=== PATIENT | female | born 1960 | race Caucasian/White ===

== ENCOUNTER 2021-03-25 07:21 | Outpatient (REF) | payer BC, SELFPAY ==
--- NOTE | ~2021-03-25 | MM_ITS ---
EXAMINATION: MM SCREENING DIGITAL BREAST TOMOSYNTHESIS, BILATERAL CLINICAL INFORMATION: Screening. Asymptomatic. The lifetime risk of breast cancer based on the Tyrer-Cuzick Model is 7%. COMPARISON: Mammography: 03/03/2020, 09/11/2018, 08/15/2017 TECHNIQUE: Digital breast tomosynthesis is performed in both the craniocaudal and mediolateral oblique views along with computer-aided detection (CAD). Synthesized 2D images are generated from the tomosynthesis. FINDINGS: There are scattered areas of fibroglandular density (ACR BI-RADS breast composition Category b). There are no significant masses, abnormal calcifications, or other abnormalities. Again, there is stable nodularity anterior central 12:00 right breast and retroareolar 6:00 right breast. Neither breast shows interval developing density or architectural abnormality. There are scattered bilateral benign round and some ductal secretory calcifications. No significant changes. MM/MM tomosynthesis screening BI IMPRESSION: No mammographic evidence of malignancy. ASSESSMENT: BI-RADS 2: Benign RECOMMENDATION: Routine annual mammography screening. This patient's information was entered into a reminder system with a target due date for their next mammogram.
== END 2021-03-25 07:22 | disposition home or self-care (01) ==
LOC: HO.MAMMO 07:21
PROVIDERS: PCP Internal Medicine; Visit Provider Internal Medicine
DX: Z12.31 Encounter for screening mammogram for malignant neoplasm of breast (principal)
CPT/HCPCS: 77063; 77067

== ENCOUNTER 2021-08-03 07:01 | Outpatient (REF) | payer BC, SELFPAY ==
[2021-08-03 07:18] LABS: MANUAL DIFF FLAG NO
[2021-08-03 07:37] LABS: Basophils Percent Auto 0.6 % (0-2); Eosinophils Absolute Auto 0.3 X10*3/uL (0.0-0.4); Eosinophils Percent Auto 4.5 % (0-4); Hematocrit 43.3 % (37.0-47.0); Hemoglobin 14.1 g/dl (12.0-16.0); Imm Gran Abs Auto 0.03 X10*3/uL (0.00-0.03); Imm Gran Pct Auto 0.4 % (0.0-0.4); Lymphocytes Absolute Auto 1.8 X10*3/uL (1.2-4.9); Lymphocytes Percent Auto 25.5 % (20-40); Mean Corpuscular HGB Conc 32.6 g/dl (31.0-35.0); Mean Corpuscular Hemoglobin 30.7 pg (27.0-33.0); Mean Corpuscular Volume 94.1 fL (80.0-98.0); Mean Platelet Volume 8.7 fL (9.4-12.3); Monocytes Absolute Auto 0.4 X10*3/uL (0.1-1.2); Monocytes Percent Auto 5.1 % (2-11); Neutrophils Absolute Auto 4.6 x10*3/uL (2.0-8.3); Neutrophils Percent Auto 63.9 % (45-73); Platelet Count 243 X10*3/uL (160-400); Red Cell Distribution Width 12.4 % (11.0-16.0); White Blood Count 7.2 X10*3/uL (4.8-10.8)
[2021-08-03 08:02] LABS: Alanine Aminotransferase 49 U/L (0-31); Albumin Level 4.2 g/dL (3.5-5.0); Alkaline Phosphatase 67 U/L (39-117); Anion Gap 13 (12-20); Aspartate Amino Transferase 39 U/L (5-31); Bilirubin Total 0.9 mg/dL (0.0-1.0); Blood Urea Nitrogen 16 mg/dL (9-16); Calcium 9.4 mg/dL (8.4-10.2); Carbon Dioxide 28 mmol/L (22-29); Chloride 104 mmol/L (96-108); Cholesterol 207 mg/dL; Estimated Glomerular Filt Rate > 60; Glucose Fasting 108 mg/dL (60-99); HDL Cholesterol 59 mg/dL; LDL Cholesterol Calculated 124 mg/dl; Sodium 141 mmol/L (135-145); Total Protein 7.1 g/dL (6.5-8.0); Triglycerides 123 mg/dL
[2021-08-03 08:24] LABS: Free T4 (Free Thyroxine) 0.88 ng/dL (0.71-1.85); Vitamin D 25-OH Total 34.4 ng/mL (>30)
== END 2021-08-03 07:02 | disposition home or self-care (01) ==
LOC: HO.LAB 07:01
PROVIDERS: PCP Internal Medicine; Visit Provider Internal Medicine
DX: Z00.00 Encounter for general adult medical examination without abnormal findings (principal); E03.9 Hypothyroidism, unspecified
CPT/HCPCS: 36415; 80053; 80061; 82306; 84439; 84443; 85025

== ENCOUNTER 2022-04-05 07:34 | Outpatient (REF) | payer BC, SELFPAY ==
--- NOTE | ~2022-04-05 | MM_ITS ---
EXAMINATION: MM SCREENING DIGITAL BREAST TOMOSYNTHESIS, BILATERAL CLINICAL INFORMATION: Screening. Asymptomatic. Remote history bilateral excisional biopsies. The lifetime risk of breast cancer based on the Tyrer-Cuzick Model is 5%. COMPARISON: Mammography: 03/25/2021, 03/03/2020, 09/11/2018 TECHNIQUE: Digital breast tomosynthesis is performed in both the craniocaudal and mediolateral oblique views along with computer-aided detection (CAD). Synthesized 2D images are generated from the tomosynthesis. FINDINGS: There are scattered areas of fibroglandular density (ACR BI-RADS breast composition Category b). Parenchymal pattern is similar to prior studies. There is no developing density or interval architectural abnormality or abnormal calcifications. Again, there is stable smooth nodularity right breast. Scattered bilateral round calcification are again seen. The axilla and skin contours are unremarkable. No significant changes. MM/MM tomosynthesis screening BI IMPRESSION: No mammographic evidence of malignancy. ASSESSMENT: BI-RADS 2: Benign RECOMMENDATION: Routine annual mammography screening. This patient's information was entered into a reminder system with a target due date for their next mammogram.
== END 2022-04-05 07:35 | disposition home or self-care (01) ==
LOC: HO.MAMMO 07:34
PROVIDERS: PCP Internal Medicine; Visit Provider Internal Medicine
DX: Z12.31 Encounter for screening mammogram for malignant neoplasm of breast (principal)
CPT/HCPCS: 77063; 77067

== ENCOUNTER 2023-03-28 07:08 | Outpatient (REF) | payer BC, SELFPAY ==
[2023-03-28 07:29] LABS: MANUAL DIFF FLAG NO
[2023-03-28 07:40] LABS: Basophils Absolute Auto 0.1 X10*3/uL (0.0-0.2); Basophils Percent Auto 0.5 % (0-2); Eosinophils Absolute Auto 0.2 X10*3/uL (0.0-0.4); Eosinophils Percent Auto 1.6 % (0-4); Hemoglobin 14.3 g/dl (12.0-16.0); Imm Gran Abs Auto 0.04 X10*3/uL (0.00-0.03); Imm Gran Pct Auto 0.4 % (0.0-0.4); Lymphocytes Absolute Auto 1.8 X10*3/uL (1.2-4.9); Mean Corpuscular HGB Conc 33.3 g/dl (31.0-35.0); Mean Corpuscular Volume 93.1 fL (80.0-98.0); Mean Platelet Volume 8.8 fL (9.4-12.3); Monocytes Absolute Auto 0.5 X10*3/uL (0.1-1.2); Monocytes Percent Auto 4.8 % (2-11); Neutrophils Percent Auto 73.7 % (45-73); Platelet Count 249 X10*3/uL (160-400); Red Blood Count 4.62 X10*6/uL (4.20-5.50); Red Cell Distribution Width 12.9 % (11.0-16.0); White Blood Count 9.6 X10*3/uL (4.8-10.8)
[2023-03-28 08:33] LABS: Alanine Aminotransferase 32 U/L (0-31); Albumin Level 4.3 g/dL (3.5-5.0); Alkaline Phosphatase 67 U/L (39-117); Anion Gap 15 (12-20); Aspartate Amino Transferase 22 U/L (5-31); Bilirubin Total 0.4 mg/dL (0.0-1.0); Blood Urea Nitrogen 17 mg/dL (9-16); Carbon Dioxide 24 mmol/L (22-29); Chloride 106 mmol/L (96-108); Cholesterol 199 mg/dL (<200); Estimated Glomerular Filt Rate > 60; Glucose Fasting 113 mg/dL (60-99); HDL Cholesterol 64 mg/dL (>40); LDL Cholesterol Calculated 117 mg/dL (<100); Potassium 4.3 mmol/L (3.3-5.1); Sodium 141 mmol/L (135-145); Total Protein 7.5 g/dL (6.5-8.0); Triglycerides 93 mg/dL (<150)
[2023-03-28 08:42] LABS: Free T4 (Free Thyroxine) 0.87 ng/dL (0.71-1.85); Thyroid Stimulating Hormone 1.83 uIU/mL (0.32-4.0)
[2023-03-28 09:16] LABS: Vitamin B12 393 pg/mL (200-900)
== END 2023-03-28 07:09 | disposition home or self-care (01) ==
LOC: HO.LAB 07:08
PROVIDERS: PCP Internal Medicine; Visit Provider Internal Medicine
DX: E78.00 Pure hypercholesterolemia, unspecified (principal); R53.83 Other fatigue; E03.9 Hypothyroidism, unspecified; R79.89 Other specified abnormal findings of blood chemistry
CPT/HCPCS: 36415; 80053; 80061; 82607; 84439; 84443; 85025

== ENCOUNTER 2023-04-04 07:33 | Outpatient (REF) | payer BC, SELFPAY ==
--- NOTE | ~2023-04-04 | MM_ITS ---
EXAMINATION: MM SCREENING DIGITAL BREAST TOMOSYNTHESIS, BILATERAL CLINICAL INFORMATION: Screening. Asymptomatic. COMPARISON: Mammography: This study is compared with prior exams dating back to 2018. TECHNIQUE: Digital breast tomosynthesis is performed in both the craniocaudal and mediolateral oblique views along with computer-aided detection (CAD). Synthesized 2D images are generated from the tomosynthesis. FINDINGS: The breasts are almost entirely fatty (ACR BI-RADS breast composition Category a). There are no significant masses, abnormal calcifications, or other abnormalities. There are few, unchanged, bilateral benign calcifications in each breast. MM/MM tomosynthesis screening BI IMPRESSION: No mammographic evidence of malignancy. ASSESSMENT: BI-RADS BI-RADS 2 - Benign Findings RECOMMENDATION: Routine annual mammography screening. 1 year F/U This examination should not preclude the clinical evaluation of a suspicious palpable abnormality. This patient's information was entered into a reminder system with a target due date for their next mammogram.
== END 2023-04-04 07:34 | disposition home or self-care (01) ==
LOC: HO.MAMMO 07:33
PROVIDERS: PCP Internal Medicine; Visit Provider Internal Medicine
DX: Z12.31 Encounter for screening mammogram for malignant neoplasm of breast (principal)
CPT/HCPCS: 77063; 77067

== ENCOUNTER → 2023-04-04 07:45 | Outpatient (BNV) | payer BC, SELFPAY | PROVIDERS: PCP Internal Medicine; Visit Provider Radiology Diagnostic Radiology | DX: Z12.31 Encounter for screening mammogram for malignant neoplasm of breast (principal) | CPT/HCPCS: 77063; 77067 ==

== ENCOUNTER 2024-04-11 07:19 | Outpatient (REF) | payer MEDICARE, SELFPAY ==
--- NOTE | ~2024-04-11 | MM_ITS ---
EXAMINATION: MM SCREENING DIGITAL BREAST TOMOSYNTHESIS, BILATERAL CLINICAL INFORMATION: Screening. Asymptomatic. COMPARISON: Mammography: Comparison is made with available priors TECHNIQUE: Digital breast mammography with tomosynthesis is performed in both the craniocaudal and mediolateral oblique views along with computer-aided detection (CAD). FINDINGS: There are scattered areas of fibroglandular density (ACR BI-RADS breast composition Category b). There are no significant masses, abnormal calcifications, or other abnormalities. MM/MM tomosynthesis screening BI IMPRESSION: No mammographic evidence of malignancy. ASSESSMENT: BI-RADS BI-RADS 1 - Negative RECOMMENDATION: Routine annual mammography screening. 1 year F/U This examination should not preclude the clinical evaluation of a suspicious palpable abnormality. This patient's information was entered into a reminder system with a target due date for their next mammogram. Electronically signed by: Kayla Colin DO 04/19/2024 10:37 AM TESFAYE
== END 2024-04-11 07:20 | disposition home or self-care (01) ==
LOC: HO.MAMMO 07:19
PROVIDERS: PCP Internal Medicine; Visit Provider Internal Medicine
DX: Z12.31 Encounter for screening mammogram for malignant neoplasm of breast (principal)
CPT/HCPCS: 77063; 77067

== ENCOUNTER → 2024-04-11 07:30 | Outpatient (BNV) | payer MEDICARE, SELFPAY | PROVIDERS: PCP Internal Medicine; Visit Provider Internal Medicine | DX: Z12.31 Encounter for screening mammogram for malignant neoplasm of breast (principal) | CPT/HCPCS: 77063; 77067 ==

== ENCOUNTER 2024-05-24 06:22 | Outpatient (REF) | payer MEDICARE, SELFPAY ==
[2024-05-24 06:38] LABS: MANUAL DIFF FLAG NO
[2024-05-24 07:15] LABS: Basophils Percent Auto 0.6 % (0-2); Eosinophils Absolute Auto 0.2 X10*3/uL (0.0-0.4); Eosinophils Percent Auto 3.2 % (0-4); Hematocrit 42.1 % (37.0-47.0); Hemoglobin 14.1 g/dl (12.0-16.0); Imm Gran Abs Auto 0.03 X10*3/uL (0.00-0.03); Imm Gran Pct Auto 0.5 % (0.0-0.4); Lymphocytes Absolute Auto 1.9 X10*3/uL (1.2-4.9); Lymphocytes Percent Auto 28.7 % (20-40); Mean Corpuscular HGB Conc 33.5 g/dl (31.0-35.0); Mean Corpuscular Hemoglobin 31.5 pg (27.0-33.0); Mean Platelet Volume 8.8 fL (9.4-12.3); Monocytes Absolute Auto 0.3 X10*3/uL (0.1-1.2); Monocytes Percent Auto 5.1 % (2-11); Neutrophils Absolute Auto 4.1 x10*3/uL (2.0-8.3); Neutrophils Percent Auto 61.9 % (45-73); Platelet Count 234 X10*3/uL (160-400); Red Blood Count 4.48 X10*6/uL (4.20-5.50); Red Cell Distribution Width 12.5 % (11.0-16.0); White Blood Count 6.7 X10*3/uL (4.8-10.8)
[2024-05-24 08:05] LABS: Alanine Aminotransferase 45 U/L (0-31); Alkaline Phosphatase 54 U/L (39-117); Anion Gap 12 (12-20); Aspartate Amino Transferase 31 U/L (5-31); Bilirubin Total 0.6 mg/dL (0.0-1.0); Blood Urea Nitrogen 14 mg/dL (9-16); Carbon Dioxide 27 mmol/L (22-29); Chloride 107 mmol/L (96-108); Cholesterol 195 mg/dL (<200); Estimated Glomerular Filt Rate > 60; Glucose Fasting 106 mg/dL (60-99); HDL Cholesterol 59 mg/dL (>40); LDL Cholesterol Calculated 108 mg/dL (<100); Potassium 3.7 mmol/L (3.3-5.1); Sodium 142 mmol/L (135-145); Total Protein 6.9 g/dL (6.5-8.0); Triglycerides 143 mg/dL (<150)
[2024-05-24 08:35] LABS: Free T4 (Free Thyroxine) 0.88 ng/dL (0.71-1.85); Vitamin D 25-OH Total 21.5 ng/mL (>30)
== END 2024-05-24 06:23 | disposition home or self-care (01) ==
LOC: HO.LAB 06:22
PROVIDERS: PCP Internal Medicine; Visit Provider Internal Medicine
DX: E78.00 Pure hypercholesterolemia, unspecified (principal); E03.9 Hypothyroidism, unspecified; I10 Essential (primary) hypertension
CPT/HCPCS: 36415; 80053; 80061; 82306; 84439; 84443; 85025

== ENCOUNTER 2025-04-17 07:24 | Outpatient (REF) | payer MEDICARE, SELFPAY ==
--- OUTSIDE RECORDS SUMMARY | 2025-04-17 07:26 | XMS_ITS | Patient Health Record ---
Author Organization [facility] Address [address] [place] [address] Care Team Providers Care Supervisor Of Way Name Role Phone Clovis (RETIRED) Mello SURESH Primary Care Provide Sushant Sanchez Jr Unavailable Allergies Allergen (clinical drug ingredient) Drug/Non Drug Allergy documented on EMR Reaction Allergy Type Onset Date Status Yeast Formula Unknown Drug Allergy Act alejandrina Sulfa Unknown Drug Allergy Active Penicillin Unknown Drug Allergy Active Reason For Referral No Information Medications Medication SIG (Take, Route, Frequency, Duration) Notes Start Date End Date Status Levothyroxine Sodium 25mg Active MoviPrep 100 GM as directed before colonoscopy Orally; Duration: 1 dose 09/09/2013 Active Problems Problem Type SNOMED Code ICD Code Onset Dates Problem Status W/U Status Risk Notes Problem Colon cancer screening (204475366) Colon cancer screening (V76.51) Active confirmed Plan Of Treatment Future Test Test Name Order Date COLONOSCOPY 09/09/2013 Insurance Providers Payer Name Payer Address Payer Phone Subscriber Number Group Number Insured Name Patient Relationship to Insured Coverage Start Date Coverage End Date [facility] [address] [place], [place] [id number] 01 DELIA SOLIS Self - patient is the insured Medical (General) History Medical History History ICD Code hypothyroidism Surgical History Surgery Date(Month/Year) tonsillectomy appendectomy section breast biopsy thyroidectomy 1996
== END 2025-04-17 07:25 | disposition home or self-care (01) ==
LOC: HO.MAMMO 07:24
PROVIDERS: PCP Student in an Organized Health Care Education/Training Program; Visit Provider Student in an Organized Health Care Education/Training Program
DX: Z12.31 Encounter for screening mammogram for malignant neoplasm of breast (principal)
CPT/HCPCS: 77063; 77067

== ENCOUNTER → 2025-04-17 07:30 | Outpatient (BNV) | payer MEDICARE, SELFPAY | PROVIDERS: PCP Student in an Organized Health Care Education/Training Program; Visit Provider Internal Medicine | DX: Z12.31 Encounter for screening mammogram for malignant neoplasm of breast (principal) | CPT/HCPCS: 77063; 77067 ==

== ENCOUNTER 2025-04-18 09:16 | Outpatient (AMB) | payer MEDICARE, SELFPAY ==
--- NOTE | 2025-04-18 07:06 | MHC.PC.OV ---
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: No Accompanied by: Self / Same As Patient Allergies penicillin V Allergy (Severe, Verified 04/18/25 09:27) yeast infection Sulfa (Sulfonamide Antibiotics) Allergy (Severe, Verified 04/18/25 09:27) swelling mouth and hands Tobacco use date assessed: 04/18/25 Fall risk assessment: No Falls in past year Last assessed Fall Risk: 04/18/25 Dental Screening Dental Screen Date: 04/18/25 Did you have a dental visit in the last 12 months?: Yes Did you have a dental problem in the last 6 months where you did not have access to dental care?: No Was dental information given to patient?: Patient has dentist HPI HPI Comments History of Present Illness Details The patient is a 65-year-old female with a past medical history of hypothyroidism and hypercholesterolemia presenting to [facility]. Her hypothyroidism is a result of a subtotal thyroidectomy performed 29 years ago for a benign condition, and she also has associated nerve damage from the surgery. The patient reports having pain in her hands for the past few years, which started in her fingers and now extends to her wrist. She has tried using braces, but found them cumbersome. She also experiences foot pain that is sometimes severe enough to prevent her from walking, at which point she performs sitting exercises. For pain management, she uses Aleve in the morning and Tylenol later in the day, limiting use to a maximum of three times a day. She also endorses constant, tolerable neck pain since her surgery. Review of labs from May 2024 showed a slightly elevated fasting glucose of 106, an unremarkable CBC, and an ALT that had increased to 45 from 32 the previous year. Her ALT has generally been in the high 40s for a few years. Her lipid panel showed a total cholesterol of 195 with an LDL of 108. Her vitamin D level was low at 21.5, and this deficiency was not treated at the time. The patient's mother at age 28 and had a history of a congenital ASD, rheumatic fever with mitral valve stenosis, and lupus. Her father was diagnosed with lung cancer and at the age of 18. The patient denies tobacco, heroin, marijuana, or cocaine use and reports occasional wine consumption. She states she is an anxious person, especially in clinical settings. Medical History: - Hypothyroidism, secondary to subtotal thyroidectomy 29 years ago. - Hypercholesterolemia. - Nerve damage, as a result of thyroidectomy. - Arthritis. - Vitamin D deficiency. - Allergies: Penicillins and sulfa drugs. Surgical History: - Subtotal thyroidectomy 29 years ago for a benign condition. Medications: - Tylenol 650 mg as needed for pain. - Levothyroxine 25 mcg daily for hypothyroidism. - Naproxen once daily for arthritis pain. - Simvastatin 20 mg daily for hypercholesterolemia. - Aleve as needed for pain. Family History: - Mother: at age 28, had a congenital atrial septal defect (ASD), rheumatic fever with mitral valve stenosis, and lupus. - Father: at age 18, had lung cancer. Diagnostic Results: - Labs from May 2024: - CBC: Unremarkable. - Fasting glucose: 106 mg/dL. - Aspartate aminotransferase (ALT): 45 U/L (increased from 32 U/L last year). - Total cholesterol: 195 mg/dL. - LDL cholesterol: 108 mg/dL. - Vitamin D: 21.5 ng/mL. - ASCVD score: 8.7%. Social History: - Substance Use: Denies tobacco, heroin, marijuana, and cocaine use. - Alcohol Use: Reports occasional wine consumption. - Exercise: Tries to walk as much as possible; performs sitting exercises on days when foot pain is severe. - Mental Health: Reports being a very anxious person, especially when visiting clinics. [facility] Medical History (Updated 04/18/25 @ 10:33 by Isiah Tijerina MD) Vitamin D deficiency Elevated liver enzymes Arthralgia Other hyperlipidemia Primary hypertension Hypothyroidism (acquired) Surgical History (Updated 04/17/25 @ 15:40 by Candy De La Garza) History of colonoscopy (~12/02/13) Social History Housing: House Patient Tobacco Use Status: Never used Tobacco e-Cigarette/Vaping Use: Never Used service: No Current occupational status: retired Questionnaire PHQ-9 Over the last 2 weeks, how often have you been bothered by any of the following problems? 1. Little interest or pleasure in doing things: not at all 2. Feeling down, depressed, or hopeless: not at all 3. Trouble falling or staying asleep, or sleeping too much: not at all 4. Feeling tired or having little energy: not at all 5. Poor appetite or overeating: not at all 6. Feeling bad about yourself - or that you are a failure or have let yourself or your family down: not at all 7. Trouble concentrating on things, such as reading the newspaper or watching television: not at all 8. Moving or speaking so slowly that other people could have noticed. Or the opposite - being so fidgety or restless that you have been moving around a lot more than usual: not at all 9. Thoughts that you would be better off or of hurting yourself in some way: not at all Total score: 0 Depression Screening Interpretation: Negative Depression Screening Done: Yes 40322 - PHQ-9 Billing: Yes Source: Developed by Drs. Isra Luna, Selene James, Jesus Robles and colleagues, with an educational maria from [employer]. Thrive Questionnaire Date Thrive assessed: 04/18/25 I am a: Patient What is your living situation today?: I have a steady place to live Within the past 12 months, did the food you bought not last and you didn't have the money to get more?: Never true Within the past 12 months, did you worry whether your food would run out before you got money to buy more?: Never true Do you have trouble paying for medicines?: No Do you have trouble getting transportation to medical appointments?: No Do you have trouble paying your heating and electricity bill?: No Do you have trouble taking care of your child, family member or friend?: No Do you have trouble with day-to-day activities such as bathing, preparing meals, shopping, managing finances, etc.?: No Are you currently unemployed and looking for a job?: No Are you interested in more education?: No THRIVE Score: 0 AUDIT C Alcohol Use Questionnaire (AUDIT-C) 1. How often do you have a drink containing alcohol?: Monthly or less 2. How many drinks containing alcohol do you have on a typical day when you are drinking?: 1 or 2 3. How often do you have six or more drinks on one occasion?: Never Total Score: 1 Score Reviewed/Action Taken: Yes RIGOBERTO-7 AMB Questionnaire RIGOBERTO-7 Date RIGOBERTO - 7 assessed: 04/18/25 Feeling nervous, anxious, or on edge: 0 = Not at all Not being able to stop or control worryin = Not at all Worrying too much about different things: 0 = Not at all Trouble relaxin = Not at all Being so restless that it is hard to sit still: 0 = Not at all Becoming easily annoyed or irritable: 0 = Not at all Feeling afraid as if something awful might happen: 0 = Not at all Total RIGOBERTO-7 score (0-4 normal; 5-9 mild; 10-14 moderate; 15-21 severe): 0 Source: Developed by Drs. Isra Luna, Selene James, Jesus Robles and colleagues, with an educational maria from [employer]. RIGOBERTO-7 Assessment Billing RIGOBERTO-7 Assessment Tool: RIGOBERTO-7 Assessment 40982 Review of Systems Narrative - Musculoskeletal: Reports pain in hands, wrists, and feet for the past few years. - Neurological: Reports occasional foot cramping and constant neck pain since her surgery. - Endocrine: Reports having wet hands. All systems reviewed & are unremarkable except as reviewed in HPI and above Physical exam (Primary Care) Vital Signs: Last Vital Signs Temp 97.5 F 04/18/25 09:29 Pulse 103 H 04/18/25 09:29 Resp 18 04/18/25 09:29 BP 156/84 H 04/18/25 09:29 Pulse Ox 96 04/18/25 09:29 Oxygen Delivery Method Room Air 04/18/25 09:29 BMI result Body Mass Index 39.1 Tobacco/Smoking Status: Tobacco use Status Tobacco use date assessed 04/18/25 04/18/25 07:07 Patient Tobacco Use Status Never used Tobacco 04/18/25 09:32 e-Cigarette/Vaping Use Never Used 04/18/25 09:32 Depression Screening Interpretation: Negative Narrative General: Alert and oriented, Well nourished, No acute distress. Eye: Pupils are equal, round and reactive to light, Intact accommodation, Extraocular movements are intact, Normal conjunctiva, Vision unchanged. HENT: Normocephalic, Atraumatic, Tympanic membranes are clear, Normal hearing, Oral mucosa is moist, No pharyngeal erythema, Ear canals patent. Respiratory: Lungs CTA bilaterally, No wheeze, Respirations are non-labored. Cardiovascular: Tachycardic to 103, Regular rhythm, S1 auscultated, S2 auscultated, No murmur, Good pulses equal in all extremities, Normal peripheral perfusion, No edema. Gastrointestinal: Soft, Non-tender, Non-distended, Normal bowel sounds, No organomegaly. Musculoskeletal: Nodules felt at the DIP PIP on the left, Some pain on extension of the little finger on the left hand, No swelling otherwise, Normal range of motion, Normal strength, No deformity, Normal gait. Integumentary: Warm, Dry, [place], Intact, Wet hands noted. Neurologic: Alert, Oriented, Normal sensory, Normal motor function, No focal defects, Cranial Nerves II-XII are grossly intact, Normal deep tendon reflexes. Psychiatric: Cooperative, Appropriate mood & affect, Normal judgment. Coding Level of Care Code New Pt Level 4 (26904) Diagnoses Hypothyroidism (acquired) E03.9 Primary hypertension I10 Other hyperlipidemia E78.49 Arthralgia, unspecified joint M25.50 Joint pain location: unspecified Elevated liver enzymes R74.8 Vitamin D deficiency E55.9 Additional Codes PHQ-9 - 49500 - PHQ-9 Billing: Yes ([id number]) RIGOBERTO-7 Assessment Billing - RIGOBERTO-7 Assessment Tool: RIGOBERTO-7 Assessment 84784 ([id number]) Assessment & Plan Assessment & Plan (1) Hypothyroidism (acquired): Comment: - The patient is on levothyroxine 25 mcg. - Given her symptoms of wet hands and tachycardia (pulse 103), there is concern for overtreatment. - A TSH and T4 will be ordered to evaluate, and medication will be adjusted based on results. Code(s): E03.9 - Hypothyroidism, unspecified Category: Medical (2) Primary hypertension: Comment: - The patient presented with an elevated blood pressure of 156/84. - She reported significant anxiety about the visit. - Treatment was advised, but she wishes to wait. - The plan is for her to monitor her blood pressures at home daily for two weeks and follow up. - If pressures remain elevated at home, treatment with amlodipine will be considered. - She is hesitant to start new medication before her vacation in a few weeks. Code(s): I10 - Essential (primary) hypertension Category: Medical (3) Other hyperlipidemia: Comment: - The patient's ASCVD risk is 8.7%, warranting a moderate-dose statin. - She is currently on simvastatin 20 mg. Labs will be repeated, and if they remain elevated, a change in medication will be considered. - The patient is hesitant to have labs drawn today due to insurance coverage concerns, as her last physical was in May 2023. Code(s): E78.49 - Other hyperlipidemia Category: Medical (4) Arthralgia: Comment: - The patient experiences pain in her hands and feet. - For management, I advised using [id number]-[id number] Voltaren gel, heating pads, and remaining active. Code(s): M25.50 - Pain in unspecified joint Category: Medical Qualifiers: Joint pain location: unspecified Qualified Code(s): M25.50 - Pain in unspecified joint (5) Elevated liver enzymes: Comment: - Labs from May 2024 showed an elevated ALT of 45 (Similar to prior year) - The plan is to repeat labs to monitor these values & order a hepatits panel, if negative a ultrasound of the liver will be obtained Code(s): R74.8 - Abnormal levels of other serum enzymes Category: Medical (6) Vitamin D deficiency: Comment: - The patient had a low vitamin D level of 21.5 in May 2024 which was untreated. - This will be re-evaluated with new lab work. Code(s): E55.9 - Vitamin D deficiency, unspecified Category: Medical Plan: Health Maintenance: - Diet: Advised to eat healthy and cut out salt. - Exercise: Advised to remain active. - Cardiovascular Risk: Calculated ASCVD risk is approximately 8.7%. - Lab Monitoring: Advised to get blood work done to monitor thyroid, lipids, and metabolic function, despite patient's insurance concerns. - Cancer Screening: Advised to contact OB for Pap, scheduled for colon next year Patient was informed and verbally consented to the use of an ambient scribe for clinic note documentation during this visit. Vital signs reviewed. Comprehensive history, review of systems, and physical exam completed. Medications, allergies, and problem list reviewed and updated. Counseling provided on nutrition, regular exercise, sleep hygiene, and moderation of alcohol use. Discussed age-appropriate screenings (mammogram, colonoscopy, Pap, bone density) and immunizations (flu, COVID, shingles, Tdap). Screened for depression, fall risk, and home safety; no current concerns. Discussed stress management, dental and vision care, and importance of ongoing preventive follow-up. Routine labs ordered for metabolic and lipid screening. Patient educated on healthy lifestyle and agrees with the plan. Plan I discussed my concern that her tachycardia and wet hands may be a sign of her being overtreated for her hypothyroidism, and we agreed to check her TSH and T4 levels. Regarding her elevated blood pressure of 156/84, I advised treatment, but she expressed a desire to wait, citing anxiety about the visit and an upcoming vacation. We agreed she would monitor her pressures at home for two weeks and follow up, at which point we could start amlodipine if they remain high. We reviewed that her ASCVD risk is 8.7%, which supports being on a moderate dose statin. I advised repeating labs to assess her cholesterol on simvastatin 20mg, but she was hesitant due to concerns her insurance would not cover it so soon after her physical last May. I advised her to get the blood work to ensure we are not missing anything important. For her joint pain, I recommended bfpe-xgx-xxnesev Voltaren gel and heating pads. I also provided general advice on healthy eating, reducing salt intake, and staying active. Orders: Orders Hemoglobin A1c Today Z76.89 - Persons encountering health services in other specified circumstances Lipid Panel Today Z76.89 - Persons encountering health services in other specified circumstances Microalbumin, Random (w Creat) Today Z76.89 - Persons encountering health services in other specified circumstances Syphilis Screen Today Z76.89 - Persons encountering health services in other specified circumstances Vitamin D 25-OH Total Today Z76.89 - Persons encountering health services in other specified circumstances Complete Blood Count Auto Diff Today Z76.89 - Persons encountering health services in other specified circumstances Comprehensive Met. Panel Today Z76.89 - Persons encountering health services in other specified circumstances Hepatitis A,B,C Profile Today Z76.89 - Persons encountering health services in other specified circumstances HIV Ab/Ag Today Z76.89 - Persons encountering health services in other specified circumstances TSH reflex Free T4 Today Z76.89 - Persons encountering health services in other specified circumstances Patient Instructions: - Check your blood pressure every day for the next two weeks and then come back to see me to review the readings. - For your joint pain, you can try using tipu-irh-qxcsofx Voltaren gel and heating pads. - Please get the blood work we discussed to check your thyroid levels and cholesterol. - Continue to stay active as much as you are able. - Try to eat a healthy diet and reduce the amount of salt you eat.
[2025-04-18 09:29] VITALS: BP 156/84; PULSE 103; RESP 18; TEMP 36.4; O2SAT 96; BMI 39.1
--- OUTSIDE RECORDS SUMMARY | 2025-04-18 10:04 | XMS_ITS | Patient Health Record ---
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 Name Role Phone Clovis (RETIRED) Mello SURESH Primary Care Provide Sushant Sanchez Jr Unavailable [phone] Allergies Allergen (clinical drug ingredient) Drug/Non Drug [...] Status Risk Notes Problem Colon cancer screening ([id number]) Colon cancer screening (V76.51) Active confirmed Plan Of Treatment Future Test Test Name Order Date COLONOSCOPY 09/09/2013 Insurance Providers Payer Name Payer Address Payer Phone Subscriber Number Group Number Insured Name Patient Relationship to Insured Coverage Start Date Coverage End Date [facility] [address] [place], [place] [id number] 01 DELIA SOLIS Self - patient is the insured Medical (General) History Medical History History ICD Code hypothyroidism Surgical History Surgery Date(Month/Year) tonsillectomy appendectomy section breast biopsy thyroidectomy 1996
== END 2025-04-18 10:30 | disposition home or self-care (01) ==
PROVIDERS: PCP Student in an Organized Health Care Education/Training Program; Visit Provider Student in an Organized Health Care Education/Training Program
DX: E03.9 Hypothyroidism, unspecified (principal); I10 Essential (primary) hypertension; E78.49 Other hyperlipidemia; M25.50 Pain in unspecified joint; R74.8 Abnormal levels of other serum enzymes; E55.9 Vitamin D deficiency, unspecified

== ENCOUNTER → 2025-04-18 09:16 | Outpatient (BNVA) | payer MEDICARE, SELFPAY | PROVIDERS: PCP Internal Medicine; Visit Provider Student in an Organized Health Care Education/Training Program | DX: E03.9 Hypothyroidism, unspecified (principal); I10 Essential (primary) hypertension; E78.49 Other hyperlipidemia; M25.50 Pain in unspecified joint; R74.8 Abnormal levels of other serum enzymes; E55.9 Vitamin D deficiency, unspecified; Z79.899 Other long term (current) drug therapy; Z13.31 Encounter for screening for depression; Z13.39 Encounter for screening examination for other mental health and behavioral disorders | CPT/HCPCS: 96127; 99202 ==

== ENCOUNTER 2025-05-03 07:54 | Outpatient (AMB) | payer MEDICARE, SELFPAY ==
[2025-05-03 07:49] VITALS: BP 150/90; PULSE 98; TEMP 36.5; O2SAT 99; BMI 38.9
--- NOTE | 2025-05-03 07:49 | MHC.PC.OV ---
Vital Signs 05/03/25 07:49 Height 5 ft 2.6 in Weight 217 lb BMI 38.9 BP 150/90 H Blood Pressure Location Lt brachial Position Sitting Pulse 98 Pulse Source Pulse Oximeter Temp 97.7 F Temp Source Temporal Artery Scan Pulse Oximetry (%) 99 Oxygen Delivery Method Room Air Intake Visit Reasons: 2 week f/u bp Test Preparer Required: No Accompanied by: Self / Same As Patient Allergies penicillin V Allergy (Severe, Verified 05/03/25 07:50) yeast infection Sulfa (Sulfonamide Antibiotics) Allergy (Severe, Verified 05/03/25 07:50) swelling mouth and hands Medication List - Last Reconciled 05/03/25 by Isiah Tijerina MD acetaminophen ER (Tylenol 8 Hour) 650 mg PO ONCE levothyroxine 25 mcg PO DAILY naproxen sodium (Aleve) 440 mg PO DAILY simvastatin 20 mg PO DAILY Tobacco use date assessed: 05/03/25 Fall risk assessment: No Falls in past year Last assessed Fall Risk: 05/03/25 Dental Screening Dental Screen Date: 05/03/25 Did you have a dental visit in the last 12 months?: Yes Did you have a dental problem in the last 6 months where you did not have access to dental care?: No HPI HPI Comments History of Present Illness Details History of Present Illness The patient is a 65 year old individual presenting for management of chronic conditions and a wellness evaluation. Current medications include levothyroxine 25 mcg for hypothyroidism and simvastatin 20 mg for hypercholesterolemia. The patient reports feeling nervous at medical appointments. The patient has a history of vitamin D deficiency, with a level of 21 last year. The level was borderline in 2019 at 34, with a cutoff of 30. The patient was previously taking 2000 units of vitamin D daily and recently started taking Ensure Max protein drinks, which contain vitamin D. The patient has a history of arthritis since the patient's 30s and reports a wicked painful nodule associated with it. The patient's father had arthritis and the patient's mother had rheumatoid arthritis. The patient monitors blood pressure at home with readings in the 120s, but experiences elevated readings in the 150s in the clinic setting. Medical History: - Hypothyroidism - Hypercholesterolemia - Arthritis, since age 30s - Vitamin D deficiency Medications: - Levothyroxine 25 mcg for hypothyroidism - Simvastatin 20 mg for hypercholesterolemia - Tylenol and ibuprofen as needed for arthritis - Vitamin D 2000 units daily - Ensure Max protein, one daily Family History: - Father had arthritis. - Mother had rheumatoid arthritis due to rheumatic fever. Diagnostic Results: - Home blood pressure monitoring: Readings in the 120s. - Labs (last year): Vitamin D level was 21. - Labs (2019): Vitamin D level was 34. Social History - Family status: The patient is and has a son who lives in [place]. - Functional status: The patient is very active, caring for two busy grandchildren. - Exercise: The patient performs seated exercises and walks frequently. - Nutrition: The patient reports consuming one Ensure Max protein drink daily. - Alcohol use: The patient mentions the possibility of having a couple of margaritas during an upcoming vacation. [facility] Medical History Vitamin D deficiency Elevated liver enzymes Arthralgia Other hyperlipidemia Primary hypertension Hypothyroidism (acquired) Surgical History History of colonoscopy (~12/02/13) Family History (Updated 05/03/25 @ 08:05 by Rose Cota MA) Mother No problems noted. Father No problems noted. Social History Housing: House Patient Tobacco Use Status: Never used Tobacco e-Cigarette/Vaping Use: Never Used service: No Current occupational status: retired Cognitive needs: No Hearing needs: No Vision needs: No Questionnaire Thrive Questionnaire Date Thrive assessed: 05/03/25 I am a: Patient Within the past 12 months, did the food you bought not last and you didn't have the money to get more?: Never true Within the past 12 months, did you worry whether your food would run out before you got money to buy more?: Never true Do you have trouble paying for medicines?: No Do you have trouble getting transportation to medical appointments?: No Do you have trouble paying your heating and electricity bill?: No Do you have trouble taking care of your child, family member or friend?: No Do you have trouble with day-to-day activities such as bathing, preparing meals, shopping, managing finances, etc.?: No Are you currently unemployed and looking for a job?: No Are you interested in more education?: No THRIVE Score: 0 AUDIT C Alcohol Use Questionnaire (AUDIT-C) 1. How often do you have a drink containing alcohol?: Never 3. How often do you have six or more drinks on one occasion?: Never Total Score: 0 RIGOBERTO-7 AMB Questionnaire RIGOBERTO-7 Date RIGOBERTO - 7 assessed: 05/03/25 Source: Developed by Drs. Isra Luna, Selene James, Jesus Robles and colleagues, with an educational maria from [email or web address]. Review of Systems Narrative Review of Systems - General: The patient reports feeling hot during the visit. - Psychiatric: The patient reports feeling nervous at doctor appointments. - Musculoskeletal: The patient reports severe pain from an arthritic nodule. - Abdomen: Denies pain on palpation. All systems reviewed & are unremarkable except as reviewed in HPI and above Physical exam (Primary Care) Vital Signs: Last Vital Signs Temp 97.7 F 05/03/25 07:49 Pulse 98 05/03/25 07:49 BP 150/90 H 05/03/25 07:49 Pulse Ox 99 05/03/25 07:49 Oxygen Delivery Method Room Air 05/03/25 07:49 BMI result Body Mass Index 38.9 Tobacco/Smoking Status: Tobacco use Status Tobacco use date assessed 05/03/25 05/03/25 07:51 Patient Tobacco Use Status Never used Tobacco 05/03/25 07:51 e-Cigarette/Vaping Use Never Used 05/03/25 07:51 PHQ-9: PHQ-9 Score PHQ-9: Total score 0 05/03/25 07:51 Thrive Assessment: Date of Thrive Assessment Date Thrive assessed 05/03/25 05/03/25 07:51 Narrative Physical Exam General: +Alert and oriented, Well nourished, No acute distress. Eye: Pupils are equal, round and reactive to light, Intact accommodation, Extraocular movements are intact, Normal conjunctiva, Vision unchanged. HENT: Normocephalic, Atraumatic, Tympanic membranes are clear, Normal hearing, Oral mucosa is moist, No pharyngeal erythema, Ear canals patent. Respiratory: Lungs CTA bilaterally, No wheeze, Respirations are non-labored. Cardiovascular: Regular rate, Regular rhythm, S1 auscultated, S2 auscultated, No murmur, Good pulses equal in all extremities, Normal peripheral perfusion, No edema. Gastrointestinal: Soft, Non-tender, Non-distended, Normal bowel sounds, No organomegaly. Musculoskeletal: Normal range of motion, Normal strength, No tenderness, No swelling, No deformity, Normal gait. Integumentary: Warm, Dry, [place], Intact. Neurologic: Alert, Oriented, Normal sensory, Normal motor function, No focal defects, Cranial Nerves II-XII are grossly intact, Normal deep tendon reflexes. Psychiatric: Cooperative, Nervous mood, Appropriate affect, Normal judgment. Coding Level of Care Code Est Pt Level 4 (87403) Complex visit Add On G2211 Diagnoses Primary hypertension I10 Other hyperlipidemia E78.49 Hypothyroidism (acquired) E03.9 Vitamin D deficiency E55.9 Arthralgia, unspecified joint M25.50 Joint pain location: unspecified Assessment & Plan Assessment & Plan (1) Primary hypertension: Comment: White coat hypertension - Blood pressure is well-controlled at home with readings in the 120s, but elevated in the office to the 150s systolic. - This is attributed to anxiety. - No antihypertensive medication is indicated at this time. - The plan is to continue home blood pressure monitoring. Code(s): I10 - Essential (primary) hypertension Category: Medical (2) Other hyperlipidemia: Comment: - Condition is stable. - The plan is to continue simvastatin 20 mg and check a cholesterol panel with upcoming labs. Code(s): E78.49 - Other hyperlipidemia Category: Medical (3) Hypothyroidism (acquired): Comment: - Condition is stable. - The plan is to continue levothyroxine 25 mcg and check thyroid function with upcoming labs. Code(s): E03.9 - Hypothyroidism, unspecified Category: Medical (4) Vitamin D deficiency: Comment: - The patient's vitamin D level dropped to 21 last year despite supplementation with 2000 IU daily. - The plan is to prescribe a 50,000 international unit dose once a week for 12 weeks to replenish levels. - Levels will be rechecked in a year, after which the patient may resume yoyb-fpm-ajtkeih supplementation. Code(s): E55.9 - Vitamin D deficiency, unspecified Category: Medical (5) Arthralgia: Comment: - The patient reports significant pain from what is described as a progression of arthritis, which the patient has had since their 30s. - The plan is to continue management with Tylenol and ibuprofen as needed. - The option of steroid injections was discussed, but the patient declined. Code(s): M25.50 - Pain in unspecified joint Category: Medical Qualifiers: Joint pain location: unspecified Qualified Code(s): M25.50 - Pain in unspecified joint Plan: Health Maintenance - Ordered a comprehensive lab panel including CBC, electrolytes, sugars, hepatitis panel, HIV, cholesterol panel, urine studies for protein, syphilis status, vitamin D, and thyroid. - Discussed CDC recommendations for a one-time screening of syphilis, hepatitis, and HIV. - Discussed increasing vitamin D supplementation for deficiency with a prescription for 50,000 units weekly for 12 weeks. - Patient encouraged to continue their active lifestyle, including walking and potential [employer] membership. Patient was informed and verbally consented to the use of an ambient scribe for clinic note documentation during this visit. Plan I reviewed the patient's lab history, noting the drop in vitamin D to a deficient level of 21 last year. I explained that the agyz-iim-cpeqtck dose was insufficient and that a prescription for 50,000 international units weekly for 12 weeks is necessary to replete stores, after which we can re-evaluate. I also explained the CDC recommendation for a one-time screening for infectious diseases like syphilis, hepatitis, and HIV, noting that conditions like syphilis can remain dormant for a long time and cause significant health issues if left untreated. We discussed that the patient's arthritis pain is part of the disease's progression and reviewed management with nukh-hye-vysbuos analgesics, as the patient declined steroid injections. I reassured the patient that based on excellent home blood pressure readings, no medication for hypertension is needed at this time. The patient will obtain the ordered labs in June when the new insurance plan becomes active. Patient Instructions: - Continue taking your Levothyroxine 25 mcg and Simvastatin 20 mg every day. - You will get a prescription for Vitamin D 50,000 units. Please take one pill once a week for 12 weeks. - You can continue to use Tylenol or ibuprofen as you need it for your arthritis pain. - After your new insurance starts in June, please go to a lab to get your blood and urine tests done. The order is already in the system. - Keep checking your blood pressure at home. Your numbers are very good. - Continue to stay active by walking and doing your exercises.
--- OUTSIDE RECORDS SUMMARY | 2025-05-03 08:04 | XMS_ITS | Patient Health Record ---
Author Organization [facility] Address [address] [place] [address] Care Team Providers Care Lead Technical Architect Name Role Phone [place] (RETIRED) Mello SURESH Primary Care Provide Sushant Sanchez Jr Unavailable Allergies Allergen (clinical drug ingredient) Drug/Non Drug Allergy documented on EMR Reaction Allergy Type Onset Date Status Penicillin Unknown Drug Allergy Active Sulfa Unknown Drug Allergy Active Yeast Formula Unknown Drug Allergy Act alejandrina Reason For Referral No Information Medications Medication SIG (Take, Route, Frequency, Duration) Notes Start Date End Date Status Levothyroxine Sodium 25mg Active MoviPrep 100 GM Solution Reconstituted as directed before colonoscopy Orally; Duration: 1 dose 09/09/2013 Active Social History Social History Additional Details Category Social Info Options Details Miscellaneous: Marital status: 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 Problems Problem Type SNOMED Code ICD Code Onset Dates Problem Status W/U Status Risk Notes Problem Colon cancer screening ([id number]) Colon cancer screening (V76.51) Active confirmed Plan Of Treatment Future Test Test Name Order Date COLONOSCOPY 09/09/2013 Insurance Providers Payer Name Payer Address Payer Phone Subscriber Number Group Number Insured Name Patient Relationship to Insured Coverage Start Date Coverage End Date [facility] [address] [place], [place] [id number] 01 DELIA SOLIS Self - patient is the insured Medical (General) History Medical History History ICD Code hypothyroidism Surgical History Surgery Date(Month/Year) tonsillectomy appendectomy section 1985,1989 breast biopsy thyroidectomy 1996
== END 2025-05-03 08:24 | disposition home or self-care (01) ==
LOC: HO.HMCHD 07:55
PROVIDERS: PCP Student in an Organized Health Care Education/Training Program; Visit Provider Student in an Organized Health Care Education/Training Program
DX: I10 Essential (primary) hypertension (principal); E78.49 Other hyperlipidemia; E03.9 Hypothyroidism, unspecified; E55.9 Vitamin D deficiency, unspecified; M25.50 Pain in unspecified joint

== ENCOUNTER → 2025-05-03 07:54 | Outpatient (BNVA) | payer MEDICARE, SELFPAY | PROVIDERS: PCP Student in an Organized Health Care Education/Training Program; Visit Provider Student in an Organized Health Care Education/Training Program | DX: I10 Essential (primary) hypertension (principal); E78.49 Other hyperlipidemia; E03.9 Hypothyroidism, unspecified; E55.9 Vitamin D deficiency, unspecified; M25.50 Pain in unspecified joint | CPT/HCPCS: 96127; 99212 ==